=== PATIENT | female | born 1935 | race Caucasian/White ===

== ENCOUNTER → 2016-09-22 | Outpatient (CLI) | payer BC ==
[~2016-09-22] MED LIST: ALPR-411 PO; AMLO-114 PO; ATRINS NAE; AVSI100 INJ; CARV25TA2 PO; DICL50TA3 PO; DONE10TA12 PO; DPRSCR15 TOP; EYELEA OPR; FERR1TAB23 PO; MELATAB2 PO; OMEP20CA9 PO; QUIN20TA30 PO; SERT50TA PO; TAMO20TA47 PO
[2016-09-22 13:24] VITALS: BP 156/83; PULSE 79; TEMP 36.6; O2SAT 96
--- NOTE | 2016-09-22 17:10 | Radiation Oncology Follow-Up ---
Radiation Oncology Follow-Up Date of Visit Sep 22, 2016. (Denisse Batres PA-C) Reason For Visit Six-month follow-up (Denisse Batres PA-C) Radiation Completion Date DIOR brachytherapy 12/30/15 (Denisse Batres PA-C) Diagnosis (1) Breast cancer Status: Resolved Onset Date: 11/10/2015 Location: right breast Histology Subtype: ductal Stage: l (A) Permanent Comment: STAGIN. Left breast cancer status post lumpectomy/SLN followed by adjuvant RT ( Mammosite, 5 years ago, RT at outside facility). 2. 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 Right breast cancer - Lumpectomy 12/14 and DIOR placement on 12/20 2. Status post completion of radiation therapy using SAVU 12/30/2015. Received 3400 cGy Last Edited By: Denisse Batres on Jan 11, 2016 14:00 (Denisse Batres PA-C) History of Present Illness Ms. Mak is an 80-year-old female with a previous history of left breast cancer treated with lumpectomy and adjuvant radiation therapy 5 years ago. The patient also has been on Arimidex. More recently, the patient self palpated a right breast mass and underwent bilateral breast imaging on 11/05/2015. The left breast was negative and there is no evidence of breast cancer in the right mammogram and ultrasound revealed a small and subtle asymmetry lower outer quadrant of the right breast in the 8 o'clock position. The diagnostic ultrasound confirmed a right breast mass at the 8 o'clock position 5 cm from the nipple that was described as a solid mass with irregular borders measuring 1 cm in the greatest dimension. The patient subsequently underwent a ultrasound -guided biopsy on 11/10/2015 which revealed invasive ductal carcinoma that was grade 2 and was estrogen receptor positive, progesterone receptor positive and HER-2 negative. The patient was seen in consultation by Dr. Noriega who evaluated her and recommended a lumpectomy followed by adjuvant radiation therapy using accelerated partial breast radiation. She recommended placement of DIOR for HDR applicator brachytherapy. We are now seeing the patient in consultation to discuss the role of radiation therapy. Overall, the patient is doing relatively well. She has no specific complaints at this time. She has no other issues at this time. She underwent the lumpectomy and sentinel lymph node biopsy. She was a candidate for DIOR HDR treatment. This was completed 12/30/2015. She received 3400 cGy. (Denisse Batres PA-C) Interim History She's been doing well over the past 6 months. She does have occasional discomfort in the area of her radiation and surgery. This occurs both in the right breast and in the left. She has noticed no redness or changes of the overlying skin. She has noted no masses or changes of the axilla. She is up-to -date on mammography. She had a mammogram of the right breast 06/13/2016. There is interval lumpectomy changes. No suspicious masses or lesions. Continue on follow-up protocol. (Denisse Batres PA-C) Allergies Coded Allergies: Penicillin G (Verified Allergy, Severe, ANAPHYLAXIS, 12/11/15) heart stopped Morphine (Verified Adverse Reaction, Intermediate, GI SYMPTOMS, 12/11/15) Uncoded Allergies: novicane (Allergy, Severe, ANAPHYLAXIS, 12/11/15) heart stops Home Medications Scheduled Alprazolam (Xanax), 0.5 MG PO HS Amlodipine (Norvasc), 10 MG PO DAILY Carvedilol (Coreg), 1 TAB PO BID Diclofenac (Voltaren), 50 MG PO BID Donepezil Hydrochloride (Aricept), 30 MG PO DAILY Ferrous Sulfate (Iron), 325 MG PO BID Melatonin (Melatonin Maximum Strengt), 1 TAB PO HS Omeprazole (Prilosec), 1 CAP PO DAILY Quinapril Hcl (Quinapril Hcl), 2 TAB PO DAILY Sertraline (Zoloft), 1 TAB PO DAILY Tamoxifen (Nolvadex), 20 MG PO DAILY [Eyelea], 1 APPLN OPR Q4WK Scheduled PRN Betamethasone Dip (Betamethasone Dipropionat), 1 APPLN TOP DAILY PRN for Itching Miscellaneous Medications Ipratropium [place] (Ipratropium [place]), 2 SPRAY DERIK Review of Systems Gastrointestinal: Symptoms: WNL Oral: Symptoms: No Problems Other Oral Symptoms: Trouble swallowing harder foods at times Respiratory: Symptoms: WNL Urinary: Symptoms: WNL, Nocturia, Frequency Comments: Nocturia x 1 Skin: Symptoms: No Problems Breast: Right Upper Arm Measurement: 29.0 Right Mid Arm Measurement: 20.5 Right Wrist Measurement: 14.9 Left Upper Arm Measurement: 30.9 Left Mid Arm Measurement: 21.4 Left Wrist Measurement: 14.5 Arm Dominence: Right (Denisse Batres PA-C) Physical Exam Vital Signs Date Time Temp Pulse Resp B/P (MAP) Pulse Ox O2 Delivery O2 Flow Rate FiO2 09/22/16 13:24 36.6 79 16 156/83 96 Fatigue: None General Appearance: no apparent distress Eyes: normal inspection, EOMI ENT: normal ENT inspection, hearing grossly normal Neck: no adenopathy, thyroid normal Respiratory/Chest: lungs clear, no respiratory distress, no accessory muscle use Breast: Breast examination reveals well-healed incisions of the right breast. The lower outer quadrant incision has very slight tenderness. There are mild fibrous changes. There are no masses and no changes to the axilla. She has no skin retractions or nipple changes. Using the [place] score cosmesis she has a good outcome. Left breast shows well-healed incisions. There are fibrous tissue changes in the area of her prior lumpectomy and surgery in the upper central portion of the breast. There is slight tenderness to palpation. There are no masses or tenderness no axillary adenopathy. Cardiovascular: regular rate, rhythm, no gallop, no murmur Extremities: no pedal edema Neurologic/Psychiatric: no motor/sensory deficits, alert, normal mood/affect Skin: warm/dry (Denisse Batres PA-C) Additional Studies Mammography as reviewed above. (Denisse Batres PA-C) Assessment & Plan Plan: Patient was also seen by Dr. cSott. We discussed the occasional discomfort in the area of her prior radiation and surgeries. [place] this is area of scar tissue. She'll continue on her current mammography protocol. We asked her to return to our office in 1 year. She may call if she has any questions or concerns in the interim. (Denisse Batres PA-C) I agree with note created by Denisse Batres PA-C. I reviewed the patient's chart and information with her. I have examined and evaluated the patient. I reviewed relevant clinical information and answered the patient's and/or family' s questions. (Veeral. Scott MD) Total Time In Follow-Up I spent 15 minutes speaking to the patient and performing examination. I spent 15 minutes reviewing information in completing this note. AK (Denisse Batres PA-C) I spent 15 minutes examining and counseling the patient. (Veeral. Scott MD) Copy To Darline Joe D.O.; Alyssa Noriega M.D.; Higinio Rose D.O. Problem Qualifiers (1) Breast cancer: Breast location: lower outer quadrant of breast Estrogen receptor status: positive Patient sex: female Laterality: right Qualified Codes: C50.511 - Malignant neoplasm of lower-outer quadrant of right female breast; Z17.0 - Estrogen receptor positive status [ER+]
== END | disposition home or self-care (01) ==
LOC: C.ONC 13:18
PROVIDERS: ATTEND Physician Assistant Medical
DX: Z08 Encounter for follow-up examination after completed treatment for malignant neoplasm (principal); Z92.3 Personal history of irradiation; Z85.3 Personal history of malignant neoplasm of breast

== ENCOUNTER → 2017-09-26 | Outpatient (CLI) | payer BC ==
[~2017-09-26] MED LIST changes: -AMLO-114 PO; +AMLO10TA3 PO; +ASPCH81X PO; -AVSI100 INJ; +BIOT1CHW PO; +MULT-190 PO; +OLOP0.1S3 OPB; -TAMO20TA47 PO; +TAMO20TA9 PO; +THIA100T10 PO
[2017-09-26 13:09] VITALS: BP 138/72; PULSE 56; TEMP 36.4; O2SAT 96
--- NOTE | 2017-09-26 16:11 | Radiation Oncology Follow-Up ---
Radiation Oncology Follow-Up Date of Visit Sep 26, 2017. Reason For Visit Annual follow-up Radiation Completion Date DIOR therapy to right breast 12/30/15 Diagnosis (1) Breast cancer Status: Resolved Onset Date: 11/10/2015 Stage: l (A) Permanent Comment: STAGIN. Left breast cancer status post lumpectomy/SLN followed by adjuvant RT ( Mammosite, 5 years ago, RT at outside facility). 2. 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 Right breast cancer - Lumpectomy 12/14 and DIOR placement on 12/20 2. Status post completion of radiation therapy using SAVU 12/30/2015. Received 3400 cGy Last Edited By: Denisse Batres on Jan 11, 2016 14:00 History of Present Illness Ms. Mak has a previous history of left breast cancer treated with lumpectomy and adjuvant radiation therapy 5 years ago. The patient also has been on Arimidex. More recently, the patient self palpated a right breast mass and underwent bilateral breast imaging on 11/05/2015. The left breast was negative and there is no evidence of breast cancer in the right mammogram and ultrasound revealed a small and subtle asymmetry lower outer quadrant of the right breast in the 8 o'clock position. The diagnostic ultrasound confirmed a right breast mass at the 8 o'clock position 5 cm from the nipple that was described as a solid mass with irregular borders measuring 1 cm in the greatest dimension. The patient subsequently underwent a ultrasound-guided biopsy on which revealed invasive ductal carcinoma that was grade 2 and was estrogen receptor positive, progesterone receptor positive and HER-2 negative. The patient was seen in consultation by Dr. Noriega who evaluated her and recommended a lumpectomy followed by adjuvant radiation therapy using accelerated partial breast radiation. She recommended placement of DIOR for HDR applicator brachytherapy. We are now seeing the patient in consultation to discuss the role of radiation therapy. Overall, the patient is doing relatively well. She has no specific complaints at this time. She has no other issues at this time. She underwent the lumpectomy and sentinel lymph node biopsy. She was a candidate for DIOR HDR treatment. This was completed 12/30/2015. She received 3400 cGy. Interim History She has been doing well over the past year. She denies any changes to the right breast. She is noted no masses or tenderness and no change of the axilla. She has had no swelling of her arm. She is up-to-date on mammography. She previously had the left breast treated. This has occasional discomfort in the upper inner quadrant in the area of scar tissue. She is noted no redness or swelling. She continues on tamoxifen and denies side effects. Allergies Coded Allergies: Penicillin G (Verified Allergy, Severe, ANAPHYLAXIS, 12/11/15) heart stopped Morphine (Verified Adverse Reaction, Intermediate, GI SYMPTOMS, 12/11/15) Uncoded Allergies: novicane (Allergy, Severe, ANAPHYLAXIS, 12/11/15) heart stops Home Medications Scheduled Alprazolam (Xanax), 0.5 MG PO HS Amlodipine (Norvasc), 10 MG PO DAILY Aspirin (Aspirin Chewable), 81 MG PO DAILY Biotin W/ Vitamins C & E (Hair Skin & Nails ... 1250-7.5-7.5 Mcg-mg-Unt), 1 TAB PO DAILY Carvedilol (Coreg), 1 TAB PO BID Diclofenac (Voltaren), 50 MG PO BID Donepezil Hydrochloride (Aricept), 30 MG PO DAILY Ferrous Sulfate (Iron), 325 MG PO BID Melatonin (Melatonin Maximum Strengt), 1 TAB PO HS Ocuvite Preservision (Ocuvite Preservision), 1 TAB PO BID Olopatadine Hcl (Patanol 0.1% Oph), 1 DROP OPB DAILY Omeprazole (Prilosec), 1 CAP PO DAILY Quinapril Hcl (Quinapril Hcl), 2 TAB PO DAILY Sertraline (Zoloft), 1 TAB PO DAILY Tamoxifen (Nolvadex), 20 MG PO DAILY Thiamine Hcl (Vitamin B-1), 100 MG PO DAILY [Eyelea], 1 APPLN OPR Q4WK Scheduled PRN Betamethasone Dip (Betamethasone Dipropionat), 1 APPLN TOP DAILY PRN for Itching Miscellaneous Medications Ipratropium [place] (Ipratropium [place]), 2 SPRAY DERIK Review of Systems Gastrointestinal: Symptoms: WNL Oral: Symptoms: No Problems Other Oral Symptoms: Occass. gets sensation food might get stuck w/ swallowing;Small bites; Respiratory: Symptoms: SOB With Exertion Urinary: Symptoms: Frequency Comments: Occass. leakage;always wears a pad Skin: Symptoms: Faint Erythema, No Problems Breast: Right Upper Arm Measurement: 33.0 Right Mid Arm Measurement: 21.0 Right Wrist Measurement: 14.8 Left Upper Arm Measurement: 34.0 Left Mid Arm Measurement: 21.5 Left Wrist Measurement: 14.3 Arm Dominence: Right Physical Exam Vital Signs Date Time Temp Pulse Resp B/P (MAP) Pulse Ox O2 Delivery O2 Flow Rate FiO2 09/26/17 13:09 36.4 56 16 138/72 96 Fatigue: None General Appearance: no apparent distress Eyes: normal inspection, EOMI ENT: normal ENT inspection, hearing grossly normal Neck: no adenopathy, thyroid normal Respiratory/Chest: lungs clear, no respiratory distress, no accessory muscle use Breast: Breast examination reveals well-healed incisions bilaterally. There are no masses or tenderness and no axillary adenopathy. On the left she does have a area of fibrous tissue in the upper inner quadrant. Using the [place] score cosmesis she has a good outcome. Cardiovascular: regular rate, rhythm, no gallop, no murmur Extremities: no pedal edema Neurologic/Psychiatric: no motor/sensory deficits, alert, normal mood/affect Skin: warm/dry Pain Management Patient Reports Pain: No Initial Pain Intensity: 0.0 Pain Management Plan She did not give the tenderness of her breast a pain level. Laboratory Laboratory Results: not applicable Pathology Pathology Results: were reviewed, and pertinent findings noted in HPI Imaging Imaging Studies: were reviewed, and pertinent findings noted below Imaging Comments She had a mammogram December 12, 2016 at the breast care center in [place]. This showed bilateral benign post lumpectomy surgical changes. No mammographic evidence to identify malignancy. Continued routine screening mammography on an annual basis. BI-RADS Category 2: Benign. Assessment & Plan Plan: Continue regular mammography. She continues on tamoxifen. Continue follow-up with medical oncology. She will continue follow-up with her breast surgeon and primary care provider. We asked her to return to our office in 1 year. She was seen and examined by Dr. Scott. Assessment & Plan (Attending) I agree with note created by Denisse Batres PA-C. I reviewed the patient's chart and information with her. I have examined and evaluated the patient. I reviewed relevant clinical information and answered the patient's and/or family' s questions. COAT OPERATOR Total Time In Follow-Up I spent 20 minutes speaking to the patient in performing examination. I spent 15 minutes reviewing information and completing this note. AK Total Time (Attending) In Follow-Up I spent 15 minutes examining and counseling the patient. COAT OPERATOR Copy To Darline Joe D.O.; Alyssa Noriega M.D.; Higinio Rose D.O. Problem Qualifiers (1) Breast cancer: Breast location: lower outer quadrant of breast Estrogen receptor status: positive Patient sex: female Laterality: right Qualified Codes: C50.511 - Malignant neoplasm of lower-outer quadrant of right female breast; Z17.0 - Estrogen receptor positive status [ER+]
== END | disposition home or self-care (01) ==
LOC: C.ONC 12:54
PROVIDERS: ATTEND Physician Assistant Medical
DX: Z08 Encounter for follow-up examination after completed treatment for malignant neoplasm (principal); Z92.3 Personal history of irradiation; Z85.3 Personal history of malignant neoplasm of breast